=== PATIENT | female | born 1950 | race Two or more races ===

== ENCOUNTER 2025-06-20 06:55 | Inpatient (IN) | payer OTHER ==
[~2025-06-20] VITALS: Ht 157.5 cm; Wt 88.5 kg
[~2025-06-20 06:55] MED LIST: ALBU0.084 IN; ALBUAER3 IN; AMLO1TAB23 PO; FLUT1AER6 IN; HYDR25TA5 PO
[2025-06-20] MEDS: ceFAZolin 2 GM/D5W50ml 50 ML IV ONE (07:22)
[2025-06-20] MEDS: CELECOXIB 100 MG CAP ONE (07:43)
[2025-06-20] MEDS: ACETAMINOPHEN IV 100 ML IV ONE (07:43)
[2025-06-20] MEDS: TRANEXAMIC ACID 20 ML ONE (09:31)
[2025-06-20] MEDS: CEFEPIME 1GM/50ML 50 ML IV ONE (09:31)
[2025-06-20] MEDS: ROPIVACAINE 0.5% (5MG/ML) 20ML AMPULE IJ ONE (09:40)
[2025-06-20] MEDS: BUPIVACAINE 0.75% INJ 10ML MPV SDV IJ ONE (09:41)
[2025-06-20] MEDS: ACETAMINOPHEN IV 1000 MG/100ML (10MG/ML) IV ONE (09:42)
[2025-06-20] MEDS: CELECOXIB 100 MG CAP PO ONE (09:42)
[2025-06-20] MEDS ORDERED: fentaNYL CITRATE 100 MCG/2 ML VL ONE (09:42)
[2025-06-20] MEDS: PREGABALIN CAPSULE 75 MG CAP PO ONE (09:42)
[2025-06-20] MEDS ORDERED: MIDAZOLAM HCL 2MG/2ML 2ml VIAL (1mg/ml) ONE (09:43)
[2025-06-20] MEDS ORDERED: PROPOFOL 10 MG/ML 20 ML IV ONE (09:43)
[2025-06-20] MEDS: BUPIVACAINE 0.25% INJ 50ML VIAL ONE (10:32)
[2025-06-20] MEDS: KETOROLAC TROMETH 30 MG/ML 1ML VIAL ONE (10:33)
[2025-06-20] MEDS: MORPHINE SULF PF 5 MG/10 ML VIAL ONE (10:34)
[2025-06-20] MEDS: VANCOMYCIN HCL 1000 MG VL ONE (10:35)
--- NOTE | 2025-06-20 11:20 | DVHOP2 ---
Discharge Orders Discharge Orders DISCHARGE WHEN CRITERIA MET DISCHARGE WHEN CRITERIA MET. Operative Rep- Outpatient Operative Report PRE-OP DIAGNOSIS: Right knee osteoarthritis PRE-OP PAIN LEVEL (0-10): Eight POST-OP DIAGNOSIS: Same [place] protocol followed: Yes ESTIMATED BLOOD LOSS: 50 cc PROCEDURE: Right total knee arthroplasty Computer navigation right total knee arthroplasty SURGEON/PRINTING TECHNICIAN: Raymond Deutsch NP Compensation Intern ANESTHESIA: SPinal ANESTHESIOLOGIST: Marci LLAMAS> INFORMED CONSENT: Informed Consent: Discussed all inherent risks, complications, and alternatives treatments with the patient. Patient has agreed to proceed with the procedure. I have reviewed all pre-operative assessments including Labs, EKGs, and radiographic images that has been performed. Patient is an appropriate candidate for the [facility] procedure. The patient was seen in the preoperative holding of the right lower extremity was marked the patient was educated of the risks and benefits of surgical and nonsurgical treatment in the right lower extremity the patient understood the risks and benefits of surgical and nonsurgical treatment and opted for surgical treatment of the right lower extremity The patient was seen in the preoperative holding area the right lower extremity was marked the patient was brought to operative suite the right lower extremity was then prepped and draped in the standard fashion Ancef was given for infection prophylaxis TXA was given for bleeding prophylaxis the right lower extremity was then marked time-out was performed and incision was made through skin subcu decision to have the VMO quad junction a medial parapatellar arthrotomy was then created and once I was then done the MCL was then I of the deeply released carefully off the deep MCL once I was then done the anterior horn of the mediolateral meniscus were then released the once I was then done retracted placed in was then done visualization of the neurovascular bundle was then protected and a careful manner using computer navigation with a 2 degree slope with the medial and lateral retractors being placed 3 mm was taken off the medial aspect of the tibial plateau once I was then done the proximal tibia cut was then completed with a 2 degree slope in the appropriate manner once I was then completed the appropriate manner the distal femoral cut was then completed with 3 of flexion with internal and external rotation with neutral cut of cutting block was then used with a size nine femoral cutting block with the form one cutting block with the posterior osteophytes were carefully removed a 10 mm spacer block was slightly tight medially and balance laterally the 11 mm spacer block was noted to be appropriately balanced once I was then done electrocautery was carefully used the size of the tibial base plate was punched and keeled along the medial 1/3 of tibial tubercle with the 11 mm MC poly and a size nine femoral component once I was then done then all the trocar was carefully removed the size D tibial base plate osteophyte was then cement placed into position with the 11 mm MC poly and a cemented nine Hugh femoral component of her sodium was I was then done up patella endarterectomy was completed the patient will be weight-bearing as tolerated in the right lower extremity PT OT out of bed daily follow up in two weeks' time the knee was irrigated, saline followed by vancomycin powder followed by Ethibond followed by Stratafix followed by 0 Vicryl followed by 2-0 Monocryl followed by Prineo dressing. The patient will be weight-bearing as tolerated in the right lower extremity PT OT out of bed daily follow up in two weeks' time RAYMOND MARK MD Jun 20, 2025 11:20
[2025-06-20] MEDS: LACTATED RINGER'S 1,000 ML IV SCH (11:30)
[2025-06-20] MEDS ORDERED: HYDROmorphone HCL 2 MG/ML VL/or syr IV PRN ×2 (11:30→11:45)
[2025-06-20] MEDS ORDERED: MORPHINE SULFATE INJ 2 MG/ml SYRG IV PRN (11:30)
[2025-06-20] MEDS ORDERED: NITROGLYCERIN 0.4 MG SL TAB SL PRN (11:30)
[2025-06-20] MEDS ORDERED: ACETAMINOPHEN 325 MG TAB PO PRN (11:30)
[2025-06-20] MEDS: ONDANSETRON HCL 4 MG/2 ML VIAL IV ONE (11:45)
--- NOTE | 2025-06-20 14:01 | DVH ---
EXAM: XY R KNEE 3V XRAY CLINICAL INDICATION: S/P SURGERY TECHNIQUE: XY R KNEE 3V XRAY Comparison: None FINDINGS/IMPRESSION: Right total knee arthroplasty with expected postsurgical changes.
[2025-06-20 17:13] VITALS: BP 135/74; PULSE 60; RESP 18; TEMP 97.3; O2SAT 93
[2025-06-20] MEDS: ONDANSETRON HCL 4 MG/2 ML VIAL IV PRN (17:15)
[2025-06-20] MEDS: OXYCODONE W/ ACETAMINOPHEN 5/325MG TABLET PO PRN (17:15)
[2025-06-20 17:17] VITALS: BP 135/74; PULSE 60; PULSE 84; RESP 18; TEMP 97.3; O2SAT 93; O2SAT 98
[2025-06-20 20:00] VITALS: PULSE 72
[2025-06-20] MEDS: ceFAZolin 1GM/50ML 50 ML IV SCH (20:07)
[2025-06-20 21:00] VITALS: BP 128/70; PULSE 74; RESP 16; TEMP 97.9; O2SAT 94
[2025-06-20] MEDS: DOCUSATE SOD 100 MG CAP PO SCH (21:13)
[2025-06-21] VITALS (7 sets, daily range): BP systolic 127–156; BP diastolic 64–84; PULSE 77–87; RESP 16–19; TEMP 97.8–99.2; O2SAT 91–97
[2025-06-21] MEDS ORDERED: ceFAZolin 1GM/50ML 50 ML IV SCH (07:15)
[2025-06-21 07:42] LABS: Hematocrit 42.0 % (36.0-46.0); Hemoglobin 14.0 g/dL (12.2-16.2); Mean Corpuscular Hemoglobin 29.5 pg (28.0-32.0); Mean Corpuscular Volume 88.6 fL (80.0-100.0); Nucleated Red Blood Cells % 0.1 %
[2025-06-21 07:48] LABS: Alanine Aminotransferase 32 U/L (7-40); Alkaline Phosphatase 88 U/L (46-116); Anion Gap 8 (5-15); BUN/Creatinine Ratio 8.4 (10.0-20.0); Calcium 9.7 mg/dL (8.7-10.4); Carbon Dioxide 27 mmol/L (20-31); Chloride 104 mmol/L (98-107); Potassium 4.4 mmol/L (3.5-5.1); Sodium 139 mmol/L (136-145); Total Protein 6.8 g/dL (5.7-8.2)
[2025-06-21 07:49] LABS: Albumin 4.4 g/dL (3.2-4.8); Bilirubin, Total 0.9 mg/dL (0.2-1.0)
[2025-06-21 07:51] LABS: Blood Urea Nitrogen 7 mg/dL (9-23); Glucose 122 mg/dL (74-106)
[2025-06-21] MEDS: ceFAZolin 1GM/50ML 50 ML IV ONE (07:54)
[2025-06-21] MEDS: ENOXAPARIN SOD 40 MG/0.4 ML SYRINGE SC SCH (09:32)
[2025-06-22 01:00] VITALS: BP 128/69; PULSE 75; RESP 17; TEMP 99; O2SAT 95
[2025-06-22 05:00] VITALS: BP 144/79; PULSE 87; RESP 17; TEMP 98.5; O2SAT 93
--- NOTE | 2025-06-22 07:50 | DVHDS2 ---
Discharge Summary Date of Admission Jun 20, 2025 at 11:26 Date of Discharge: Jun 22, 2025 Wounds: 1. You will likely have a gel-type dressing over your wound, you may keep this on for 7-14 days after leaving the hospital until your first post-op visit, unless it becomes soiled or your skin becomes irritated. If a wound vac dressing is placed on your knee this is to be left in place for one week and will be changed as needed. After your remove the dressing or wound vac, the home health nurse may place clean dry dressing over your wound. Keep wound covered, clean and dry for two weeks. 2. [place] will be removed during your initial post-op visit. If you have concerns about our wound, please call the office immediately. If nervous about staple removal can take pain pill one hour prior to appointment. 3. If there is drainage from your wound, change the dressing daily until it stops. If drainage lasts more than 10 days, call our office. 4. Low grade (up to 100 degrees) fever is common for the first week after surgery. You should take your temperature daily. If you have fevers of 101 or more, please call the office. Labs/Diagnostic Data: Laboratory Results Test 06/21/25 06:22 White Blood Count 9.4 10^3/uL (4.4-10.8) Red Blood Count 4.74 10^6/uL (4.0-5.20) Hemoglobin 14.0 g/dL (12.2-16.2) Hematocrit 42.0 % (36.0-46.0) Mean Corpuscular Volume 88.6 fL (80.0-100.0) Mean Corpuscular Hemoglobin 29.5 pg (28.0-32.0) Mean Corpuscular Hemoglobin Concent 33.3 g/dL (32.0-36.0) Red Cell Distribution Width 12.8 % (11.8-14.3) Platelet Count 231 10^3/uL (140-450) Mean Platelet Volume 9.8 fL (6.9-10.8) Neutrophils (%) (Auto) 77.3 % (37.0-80.0) Lymphocytes (%) (Auto) 11.6 % (10.0-50.0) Monocytes (%) (Auto) 9.2 % (0.0-12.0) Eosinophils (%) (Auto) 1.6 % (0.0-7.0) Basophils (%) (Auto) 0.3 % (0.0-2.0) Neutrophils # (Auto) 7.3 10 ^3/uL (1.6-8.6) Lymphocytes # (Auto) 1.1 10 ^3/uL (0.4-5.4) Monocytes # (Auto) 0.9 10 ^3/uL (0-1.3) Eosinophils # (Auto) 0.2 10 ^3/uL (0-0.8) Basophils # (Auto) 0 10 ^3/uL (0-0.2) Nucleated Red Blood Cells 0.1 % Sodium Level 139 mmol/L (136-145) Potassium Level 4.4 mmol/L (3.5-5.1) Chloride Level 104 mmol/L (98-107) Carbon Dioxide Level 27 mmol/L (20-31) Anion Gap 8 (5-15) Blood Urea Nitrogen 7 mg/dL (9-23) Creatinine 0.83 mg/dL (0.550-1.02) Glomerular Filtration Rate Calc 74 mL/min (>90) BUN/Creatinine Ratio 8.4 (10.0-20.0) Serum Glucose 122 mg/dL (74-106) Calcium Level 9.7 mg/dL (8.7-10.4) Total Bilirubin 0.9 mg/dL (0.2-1.0) Aspartate Amino Transferase (AST) 28 U/L (13-40) Alanine Aminotransferase (ALT) 32 U/L (7-40) Alkaline Phosphatase 88 U/L (46-116) Total Protein 6.8 g/dL (5.7-8.2) Albumin 4.4 g/dL (3.2-4.8) Other Laboratory Tests 06/21/25 06:22 Brief Hx & Hospital Course: s/p right total knee arthroplasty Condition at Discharge: Good Final Diagnosis/Problems List right knee osteoarthritis Discharge Disposition: Home with Health Services Discharge Instruct/Medications Diet comment: may advance diet as tolerated, drink plenty of fluids. Activity: See Comment Activity comment: 1.CPM as ordered, goal is for 6 hours every day for the first 21 days of your recovery. Can break it up in to increments of 2-3 hours at a time. Most hospitals will start at 45 degrees of flexion, and increase by 5 degrees daily until the machine has been maxed out. The goal is to be at 90 degrees by first postop visit in 2 weeks. 2.No pool, jacuzzi, beach, [place] or bath for 6 weeks. Once all scabbing has fallen off patient can begin soaking and submerging knee under water for 15-minute periods at a time. 3.Physical therapy is critical in the first 2 weeks. If having issues with scheduling please inform office. 4.No running or jumping for 6 weeks. 5.Can walk and bear as much weight on the surgical leg as tolerated. No restrictions in regards to walking or standing. Follow Up/Referral: 1.Driving is not permitted within the first 2 weeks. 2.Your first postoperative visit will take place 2 weeks after discharge. Please call the office once you are home from the hospital to arrange this appointment. 3.Antibiotic preventative treatment is required before dental or other invasive procedures. Please ask your surgeon about this at your first postoperative visit. If you experience chest pain, shortness of breath or severe painful calf swelling, go to the nearest emergency room to be evaluated. Please call our office once your situation is stabilized. Medications: 1.You will be discharged with pain medication, a blood thinner (unless you were previously on a blood thinner prior to surgery) and stool softener. Please follow the instructions regarding these medications as provided by your nurse at the hospital upon discharge. 2.Blood clots in the leg are a known complication of surgery. It is very important that you take the medication to protect against clots. Depending on what you are discharged on typically it is Lovenox 40mg daily for 2 weeks or Aspirin 81mg twice daily for 4 weeks. After you finish this, you should then take baby Aspirin (81mg) once daily for 2 weeks. 3.You should restart all of your prescription medications once discharged from the hospital/surgery center unless specifically instructed otherwise. 4.Herbal supplements may be restarted 2 weeks after surgery. 5.If you have been given Coumadin as a blood thinner, please follow up with your supervisor detasseling crew during the first two weeks after surgery to review medications and overall medical well-being. 6.Please note that narcotic pain medication may cause constipation. Please remember to take stool softeners (Colace) when using narcotics to help reduce the change of constipation. You should not use alcohol together with narcotic medication. Scheduled Albuterol Sulfate (Ventolin Mdi), 90 MCG IN PRN, (Reported) Albuterol Sulfate (Albuterol Sulfate), 0.083 % IN PRN, (Reported) Amlodipine Besylate (Amlodipine Besylate), 10 MG PO DAILY, (Reported) Hctz (Hydrochlorothiazide), 25 MG PO DAILY, (Reported) Miscellaneous Medications Fluticasone-Salmeterol (Wixela Inhub 250-50 Mcg/Dose), 1 AER IN, (Reported) Discharge Statement: "Patient was advised to return to the ER or call 911 if any headaches, dizziness, shortness of breath, chest pain, abdominal pain, bleeding, fevers, or worsening of medical condition. Patient was counseled about treatment plan, medications, possible side effects, patientverbalized understanding. All questions were answered to the best of my ability. This discharge took greater then 30 minutes in planning, reviewing documentation, counseling the patient, and discussing with other team members." ASSESSMENT ASSESSMENT Assessment JACQUELINE CHAPIN NP Jun 22, 2025 07:50
[2025-06-22 08:00] VITALS: PULSE 87; PULSE 89
[2025-06-22 13:00] VITALS: BP 151/89; PULSE 83; RESP 19; TEMP 99.1; O2SAT 91
--- NOTE | 2025-06-22 13:53 | DVHINCON2 ---
Date Seen: Jun 21, 2025 Referring Physician Orthopedic spine surgery. Reason for Consultation Medical management. History of Present Illness 75-year-old female with a known history of asthma, hypertension, degenerative joint disease of the right knee who was here for elective surgery for right total knee arthroplasty. Postoperatively patient is doing fairly well denies any shortness with breaths chest pain fevers chills cough or phlegm Past Medical History Asthma/COPD Hypertension Degenerative joint disease of the right knee Past Surgical History Degenerative joint disease of the right knee. Family History: Patient reports no known family medical history. Allergies: Coded Allergies: Iodine (Unverified Allergy, Intermediate, edema, itchy, 06/17/25) Home Meds Reported Medications Albuterol Sulfate (Albuterol Sulfate) 0.083 % Neb, 0.083 % IN PRN, INH 06/17/25 Albuterol Sulfate (VENTOLIN MDI) 90 Mcg Ih, 90 MCG IN PRN, INH 06/17/25 Fluticasone-Salmeterol (Wixela Inhub 250-50 Mcg/Dose) 1 Aer Aer, 1 AER IN, AER 06/17/25 Hctz (Hydrochlorothiazide) 25 Mg Tab, 25 MG PO DAILY, TAB 06/17/25 Amlodipine Besylate (Amlodipine Besylate) 10 Mg Tab, 10 MG PO DAILY, TAB 06/17/25 Review of Systems Twelve review of system are negative besides mentioned above. 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 Labs/Diagnostic Data Labs Test 06/21/25 06:22 Range/Units White Blood Count 9.4 4.4-10.8 10^3/uL Red Blood Count 4.74 4.0-5.20 10^6/uL Hemoglobin 14.0 12.2-16.2 g/dL Hematocrit 42.0 36.0-46.0 % Mean Corpuscular Volume 88.6 80.0-100.0 fL Mean Corpuscular Hemoglobin 29.5 28.0-32.0 pg Mean Corpuscular Hemoglobin Concent 33.3 32.0-36.0 g/dL Red Cell Distribution Width 12.8 11.8-14.3 % Platelet Count 231 140-450 10^3/uL Mean Platelet Volume 9.8 6.9-10.8 fL Neutrophils (%) (Auto) 77.3 37.0-80.0 % Lymphocytes (%) (Auto) 11.6 10.0-50.0 % Monocytes (%) (Auto) 9.2 0.0-12.0 % Eosinophils (%) (Auto) 1.6 0.0-7.0 % Basophils (%) (Auto) 0.3 0.0-2.0 % Neutrophils # (Auto) 7.3 1.6-8.6 10 ^3/uL Lymphocytes # (Auto) 1.1 0.4-5.4 10 ^3/uL Monocytes # (Auto) 0.9 0-1.3 10 ^3/uL Eosinophils # (Auto) 0.2 0-0.8 10 ^3/uL Basophils # (Auto) 0 0-0.2 10 ^3/uL Nucleated Red Blood Cells 0.1 % Sodium Level 139 136-145 mmol/L Potassium Level 4.4 3.5-5.1 mmol/L Chloride Level 104 98-107 mmol/L Carbon Dioxide Level 27 20-31 mmol/L Anion Gap 8 5-15 Blood Urea Nitrogen 7 L 9-23 mg/dL Creatinine 0.83 0.550-1.02 mg/dL Glomerular Filtration Rate Calc 74 >90 mL/min BUN/Creatinine Ratio 8.4 L 10.0-20.0 Serum Glucose 122 H 74-106 mg/dL Calcium Level 9.7 8.7-10.4 mg/dL Total Bilirubin 0.9 0.2-1.0 mg/dL Aspartate Amino Transferase (AST) 28 13-40 U/L Alanine Aminotransferase (ALT) 32 7-40 U/L Alkaline Phosphatase 88 46-116 U/L Total Protein 6.8 5.7-8.2 g/dL Albumin 4.4 3.2-4.8 g/dL Assessment 75-year-old female with a known history of hypertension, has been/COPD, degene rative joint disease with right de is here for elective surgery for right total knee arthroplasty. 1. Hypertension controlled 2. History of asthma/COPD currently stable 3. Degenerative joint disease status post right total knee arthroplasty -PT evaluation and treatment, pain meds, discharge plan per Orthopedics -resume home medications. Plan discussed with: Patient, Other Date of Service: Jun 21, 2025 Billing Provider: KAYKAY ALEXANDER MD Common Visit Codes: NOT BILLABLE KAYKAY ALEXANDER MD Jun 22, 2025 13:53
== END 2025-06-22 14:08 | disposition home health service (06) | DRG 470 ==
LOC: SUR 06:55 → OVERFLOW 11:26 → TELE-WESTW 15:39 → OVERFLOW 15:42 → TELE-WESTW 15:43
PROVIDERS: ADMIT Nurse Practitioner; ATTEND Orthopaedic Surgery Adult Reconstructive Orthopaedic Surgery
PROC: 8E0YXBZ Computer Assisted Procedure of Lower Extremity (ICD-10-PCS; 2025-06-20)
PROC: 0SRC0J9 Replacement of Right Knee Joint with Synthetic Substitute, Cemented, Open Approach (ICD-10-PCS; principal; 2025-06-20 09:54)
DX: M17.11 Unilateral primary osteoarthritis, right knee (principal); I10 Essential (primary) hypertension; J44.89 Other specified chronic obstructive pulmonary disease; E66.9 Obesity, unspecified; Z68.35 Body mass index [BMI] 35.0-35.9, adult; Z88.8 Allergy status to other drugs, medicaments and biological substances
CPT/HCPCS: 36415; 73562; 80053; 85025; 86850; 86900; 86901; 97110; 97116; 97163; G0378; J0131; J1885; J2250; J2405; J2704; J3490